=== PATIENT | female | born 1935 | race Caucasian/White ===

== ENCOUNTER 2023-10-27 15:46 | Emergency (ER) | payer MEDICARE, BC, SELFPAY ==
[2023-10-27 16:09] VITALS: BP 163/81; PULSE 60; RESP 18; TEMP 36.9; O2SAT 99; BMI 24.3
--- NOTE | 2023-10-27 16:32 | ED.GENADULT ---
HPI - General Adult General Time Seen by Provider: 16:32 Date Seen: 10/27/23 Chief complaint: Unspecified Complaint, Adult Stated complaint: pain in stomach/torso Time Seen by Provider: 10/27/23 15:49 Source: patient, family, RN notes reviewed and old records reviewed Mode of arrival: ambulatory Limitations: no limitations History of Present Illness HPI narrative: 88-year-old female who comes in today with upper abdominal and chest pain. She notes that 5 days ago she woke up with what she described as crampy pain or aching in her ribs that moved into her chest and shoulder. This lasted through that day and into the next day. It was constant during that time. No associated nausea, vomiting, or shortness of breath. Pain resolved on its own and she has had no pain for the last 3 days. Does have a history of hypertension but denies other medical problems. Related Data Home Medications Medication Instructions Recorded Confirmed citalopram 20 mg tablet (Celexa) 10 mg PO DAILY 10/27/23 10/27/23 lisinopril 20 mg tablet 10 mg PO DAILY 10/27/23 10/27/23 potassium chloride 20 mEq 20 meq PO DAILY 10/27/23 10/27/23 tablet,extended release (K-Tab) Allergies Allergy/AdvReac Type Severity Reaction Status Date / Time Penicillins Allergy Verified 10/27/23 16:14 Exam Narrative: Exam Narrative: General: Well-developed and well-nourished, no acute distress Head: Atraumatic and normocephalic Eyes: Pupils are equal reactive, extraocular motions intact, conjunctiva clear ENT: External nose and ears are normal, posterior pharynx without erythema or exudate Neck: No midline cervical tenderness, full spontaneous range of motion the neck, trachea midline, no adenopathy Heart: Regular rate and rhythm no murmurs or thrills Lungs: Clear to auscultation bilaterally without wheezes or crackles Abdomen: Soft, nontender, nondistended with active bowel sounds Musculoskeletal: No tenderness, deformity, or edema Neurologic: Awake, alert, and oriented x3, no gross focal neurologic deficits, cranial nerves intact as tested Psych: Mood and affect are appropriate Skin: No rashes Const: Vital Signs, click to edit/add: Vital Signs - 24 hr 10/27/23 16:09 Temperature 98.5 F Pulse Rate [Right Pulse Oximeter] 60 Respiratory Rate 18 Blood Pressure [Ri ght Upper Arm] 163/81 H Pulse Oximetry 99 Oxygen Delivery Me thod Room Air Course Course ED Course: Patient seen and examined, presents with upper abdominal and chest pain radiating to the shoulders that lasted for about a day, resolved 3 days ago. She has had no pain or symptoms since then. Initial EKG is reassuring. Symptoms sound more consistent gastrointestinal etiology, cannot exclude cardiac etiology, troponin will be ordered although pain several days ago and so normal troponin might be expected even in the setting of ACS. If workup today is reassuring, follow-up with primary care for further evaluation including possible stress test. Reevaluation(s) Time of Reevaluation #1: 17:21 Reevaluation #1: A labs ordered and independently interpreted by me with normal CBC, normal basic metabolic panel other than slightly elevated glucose in a nonfasting patient, normal hepatic panel with normal lipase and negative troponin. Given onset of symptoms 4-5 days ago, no further testing indicated this time. Follow-up with primary care for further evaluation of symptoms recur or other concerns Vital Signs Vital signs: Initial Vital Signs Temperature 98.5 F 10/27/23 16:09 Temperature Source Temporal Artery Scan 10/27/23 16:09 Pulse Rate 60 10/27/23 16:09 Respiratory Rate 18 10/27/23 16:09 Blood Pressure 163/81 H 10/27/23 16:09 Blood Pressure Mean 108 H 10/27/23 16:09 Blood Pressure Position Sitting 10/27/23 16:09 Pulse Oximetry 99 10/27/23 16:09 Oxygen Delivery Method Room Air 10/27/23 16:09 Vital Signs Temperature 98.5 F 10/27/23 16:09 Pulse Rate 60 10/27/23 16:09 Respiratory Rate 18 10/27/23 16:09 Blood Pressure 163/81 H 10/27/23 16:09 Pulse Oximetry 99 10/27/23 16:09 Oxygen Delivery Method Room Air 10/27/23 16:09 Temperature 98.5 F 10/27/23 16:09 Pulse Rate 60 10/27/23 16:09 Respiratory Rate 18 10/27/23 16:09 Blood Pressure 163/81 H 10/27/23 16:09 Pulse Oximetry 99 10/27/23 16:09 Oxygen Delivery Method Room Air 10/27/23 16:09 Medical Decision Making Lab Data Labs: Lab Results 10/27/23 10/27/23 Range/Units 16:30 16:44 WBC 5.82 (4.50-11.00) K/uL RBC 3.92 L (4.00-5.20) m/uL Hgb 12.7 (12.0-16.0) gm/dL Hct 37.3 (33.0-51.0) % MCV 95 (80-100) fL MCH 32 (26-34) pg MCHC 34 (32-36) gm/dL RDW Coeff of Hansa 12.8 (11.5-15.5) % Plt Count 290 (140-440) K/uL Neut % (Auto) 55.3 (42.0-72.0) % Lymph % (Auto) 30.2 (20-44) % Trigg % (Auto) 8.2 (0.0-11.0) % Eos % (Auto) 4.6 (0.0-7.0) % Baso % (Auto) 1.2 (0.0-3.0) % Neut # (Auto) 3.21 (1.7-7.0) K/uL Lymph # (Auto) 1.76 (0.90-2.90) K/uL Trigg # (Auto) 0.50 (0.00-0.90) K/UL Eos # (Auto) 0.27 (0.00-0.50) K/uL Baso # (Auto) 0.07 (0.00-0.30) K/uL Abs Immat Gran (auto) 0.03 (0.00-0.30) K/uL Imm/Tot Granulo (auto) 0.5 % Sodium 140 (135-149) mmol/L Potassium 3.8 (3.6-5.1) mmol/L Chloride 110 (96-114) mmol/L Carbon Dioxide 25 (20-32) mmol/L Anion Gap 5 L (7-15) mEq/L BUN 21 (7-30) mg/dL Creatinine 0.9 (0.5-1.5) mg/dL Estimated Creat Clear 32.17 Estimated GFR 61 ml/min Glucose 126 H (60-115) mg/dL Calcium 9.7 (8.4-10.6) mg/dL Magnesium 1.9 (1.5-2.6) mg/dL Total Bilirubin 0.8 (0.1-1.5) mg/dL Direct Bilirubin 0.1 (0.0-0.5) mg/dL AST 33 (12-35) U/L ALT 30 (4-35) U/L Alkaline Phosphatase 64 (40-150) U/L Total Protein 6.9 (6.0-8.3) g/dL Albumin 3.9 (3.3-5.0) g/dL Lipase 12 L (23-300) U/L POC Troponin I 0.01 (0.01-0.04) ng/ml ECG Data Attestation: I personally reviewed and interpreted this ECG as follows: Prior ECG tracings: not available for review Interpretation: Independently interpreted by me performed at 4:24 p.m. rate 60, sinus rhythm, no acute ST elevations or depressions, normal intervals, MA 140, QTC 390. No prior for comparison Discharge Plan Discharge Clinical Impression: Acute upper abdominal pain, Chest pain Patient Disposition: Home, Self-Care Condition: Stable Additional Instructions: No definite cause of your symptoms is found today. Pain in the upper abdomen into the chest can be from heart problems but is most commonly seen with gastrointestinal disorders, either from the stomach or from the gallbladder. Testing for your heart to look for heart damage is negative today. Follow-up with your primary care doctor this week to discuss further testing including possible gallbladder ultrasound or ultrasound of the heart. Resume your usual activity and normal diet. If symptoms return, try Pepto-Bismol or Maalox Discharge Diet: Regular Prescriptions: No Action potassium chloride [K-Tab] 20 mEq tablet extended release 20 meq PO DAILY lisinopril 20 mg tablet 10 mg PO DAILY citalopram [Celexa] 20 mg tablet 10 mg PO DAILY Follow Up/Referrals: Provider,Not a Local [Primary Care Provider] - Stand Alone Forms: [employer] Info Instructions
[2023-10-27 16:50] LABS: Basophils Absolute Auto 0.07 K/uL (0.00-0.30); Basophils Percent Auto 1.2 % (0.0-3.0); Eosinophils Absolute Auto 0.27 K/uL (0.00-0.50); Eosinophils Percent Auto 4.6 % (0.0-7.0); Hematocrit 37.3 % (33.0-51.0); Hemoglobin* 12.7 gm/dL (12.0-16.0); Immature Granulocytes Abs Auto 0.03 K/uL (0.00-0.30); Immature Granulocytes Pct Auto 0.5 %; Lymphocytes Absolute Auto 1.76 K/uL (0.90-2.90); Lymphocytes Percent Auto 30.2 % (20-44); Mean Corpuscular HGB Conc 34 gm/dL (32-36); Mean Corpuscular Hemoglobin 32 pg (26-34); Mean Corpuscular Volume 95 fL (80-100); Monocytes Percent Auto 8.2 % (0.0-11.0); Neutrophils Absolute Auto 3.21 K/uL (1.7-7.0); Neutrophils Percent Auto 55.3 % (42.0-72.0); Platelet Count* 290 K/uL (140-440); RDW Coefficient of Variation % 12.8 % (11.5-15.5); Red Blood Count 3.92 m/uL (4.00-5.20); White Blood Count* 5.82 K/uL (4.50-11.00)
[2023-10-27 16:59] LABS: Troponin, Point-of-Care* 0.01 ng/ml (0.01-0.04)
[2023-10-27 17:00] LABS: Slide Review Reflex No
[2023-10-27 17:03] LABS: Albumin* 3.9 g/dL (3.3-5.0); Chloride* 110 mmol/L (96-114)
[2023-10-27 17:04] LABS: Potassium* 3.8 mmol/L (3.6-5.1); Sodium* 140 mmol/L (135-149)
[2023-10-27 17:06] LABS: Alkaline Phosphatase* 64 U/L (40-150); Anion Gap 5 mEq/L (7-15); Aspartate Amino Transferase* 33 U/L (12-35); Bilirubin Direct* 0.1 mg/dL (0.0-0.5); Bilirubin Total* 0.8 mg/dL (0.1-1.5); Blood Urea Nitrogen* 21 mg/dL (7-30); Calcium* 9.7 mg/dL (8.4-10.6); Carbon Dioxide* 25 mmol/L (20-32); Creatinine* 0.9 mg/dL (0.5-1.5); Est. Creatinine Clearance* 32.17; Estimated Glomerular Filt Rate 61 ml/min; Glucose* 126 mg/dL (60-115); Lipase* 12 U/L (23-300); Total Protein* 6.9 g/dL (6.0-8.3)
[2023-10-27 17:07] LABS: Alanine Aminotransferase* 30 U/L (4-35); Magnesium* 1.9 mg/dL (1.5-2.6)
== END 2023-10-27 17:34 | disposition home or self-care (01) ==
PROVIDERS: Emergency Provider Family Medicine
DX: R10.10 Upper abdominal pain, unspecified (principal); R07.9 Chest pain, unspecified
CPT/HCPCS: 36415; 80048; 80076; 83690; 83735; 84484; 85025; 93005; 99284